=== PATIENT | female | born 1985 | race Caucasian/White ===

== ENCOUNTER → 2017-02-15 | Outpatient (CLI) | payer BC ==
--- NOTE | 2017-02-15 16:56 | US ---
EXAMINATION TYPE: US pelvic complete DATE OF EXAM: 02/15/2017 COMPARISON: NONE CLINICAL HISTORY: N93.8 ABN UERINE AND VAGINAL BLEEDING. TECHNIQUE: Transabdominal (TA) Date of LMP: today EXAM MEASUREMENTS: Uterus: 7.3 x 3.0 x 3.5 cm Endometrial Stripe: 0.6 cm Right Ovary: 3.1 x 2.1 x 2.1 cm Left Ovary: 2.8 x 1.9 x 3.1 cm 1. Uterus: Anteverted wnl 2. Endometrium: wnl 3. Right Ovary: wnl 4. Left Ovary: wnl 5. Bilateral Adnexa: wnl 6. Posterior cul-de-sac: no free fluid Urinary bladder is sonolucent. Posterior wall is normal. IMPRESSION: 1. Normal pelvic ultrasound
== END | disposition home or self-care (01) ==
LOC: RADUSWWP 16:07
PROVIDERS: ATTEND Family Medicine
DX: N93.8 Other specified abnormal uterine and vaginal bleeding (principal)
CPT/HCPCS: 76856